=== PATIENT | female | born 1940 | race Caucasian/White ===

== ENCOUNTER → 2017-03-25 | Outpatient (CLI) | payer OTHER | LOC: FIMAGING 13:59 | PROVIDERS: ATTEND Physician Assistant Surgical | DX: Z12.31 Encounter for screening mammogram for malignant neoplasm of breast (principal) | CPT/HCPCS: G0202 ==

== ENCOUNTER → 2018-04-01 | Outpatient (CLI) | payer OTHER | LOC: FIMAGING 13:02 | PROVIDERS: ATTEND Physician Assistant Surgical | DX: Z12.31 Encounter for screening mammogram for malignant neoplasm of breast (principal) ==

== ENCOUNTER 2019-03-28 10:43 | Day surgery (SDC) | payer OTHER ==
[2019-03-28] MEDS ORDERED: ROPIVACAINE HCL 150 MG/30 ML INJ ONE (10:58)
[2019-03-28] MEDS ORDERED: BUPIVACAINE 0.5% 30 ML SDV ONE (10:59)
[2019-03-28] MEDS ORDERED: LIDOCAINE 1% 5 ML SDV ONE ×2 (11:00→13:57)
--- NOTE | 2019-03-28 11:03 | PDANEPAE ---
ANE History of Present Illness R. 2d toe amputation, R 5th toe tendon release and excision of lesion. ANE Past Medical History - Cardiovascular History Hx Hypertension: No Hx Arrhythmias: No Hx Chest Pain: No Hx Coronary Artery / Peripheral Vascular Disease: No Hx CHF / Valvular Disease: No Hx Palpitations: No Cardiovascular History Comment: BP high today, denies HTN. - Pulmonary History Hx COPD: No Hx Asthma/Reactive Airway Disease: No Hx Recent Upper Respiratory Infection: No Hx Oxygen in Use at Home: No Hx Sleep Apnea: No Sleep Apnea Screening Result - Last Documented: Negative - Neurologic History Hx Cerebrovascular Accident: No Hx Seizures: No Hx Dementia: No - Endocrine History Hx Diabetes: Yes Hypothyroid: Yes Hyperthyroid: No Endocrine History Comment: TOTAL THYROIDECTOMY - Renal History Hx Renal Disorders: No Renal History Comment: PREV BLADDER CA - Liver History Hx Hepatic Disorders: No - Neurological & Psychiatric Hx Hx Neurological and Psychiatric Disorders: No - Cancer History Hx Cancer: Yes Cancer History Comment: BLADDER - Congenital Disorder History Hx Congenital Disorders: No - GI History GERD: mild Hx Gastrointestinal Disorders: Yes Gastrointestinal History Comment: PREV GERD WITH RX. OK PAST 2 YEARS - Other Health History Other Health History: BUNION RT FOOT. DIFORMITY RT 2ND TOE. RT 3RD HAMMERTOE - Chronic Pain History Chronic Pain: Yes (RT FOOT) - Surgical History Prior Surgeries: REMVL BLADDER TUMOR 2005. TOTAL THYROIDECTOMY. TONSILLECTOMY ANE Review of Systems Review of Systems: - Exercise capacity METS (RN): 6 METS ANE Patient History - Allergies Allergies/Adverse Reactions: ciprofloxacin [From Cipro] Allergy (Verified 03/22/19 14:05) Rash - Home Medications Home Medications: Synthroid DAILY 03/22/19 [Last Taken 03/28/19] Herbals/Supplements -Info Only 03/28/19 [Last Taken 1 Day Ago ~03/27/19] - Anes Hx Anes Hx: no prior problems - Smoking Hx Smoking Status: Former smoker Marijuana use: Yes - Alcohol Use Alcohol Use: Other (3 drinks/week) - Family Anes Hx Family Anes Hx: none ANE Labs/Vital Signs - Vital Signs Blood Pressure: 177/78 Heart Rate: 68 O2 Sat (%): 98 Height: 162.56 cm Weight: 69.853 kg ANE Physical Exam - Airway Neck exam: decreased ROM Mallampati Score: Class 2 Mouth exam: normal dental/mouth exam - Pulmonary Pulmonary: clear to auscultation - Cardiovascular Cardiovascular: regular rate and rhythym - ASA Status ASA Status: II ANE Anesthesia Plan Anesthesia Plan: GA with mask
[2019-03-28] MEDS ORDERED: LR 1,000 ML IV ONE (11:06)
[2019-03-28] MEDS ORDERED: LIDOCAINE 1% 2 ML INJ ID PRN (11:06)
[2019-03-28] MEDS ORDERED: ceFAZolin 2 GM/DEXTROSE 100 ML IV ONE (11:48)
--- NOTE | 2019-03-28 11:51 | PDHPUP ---
History & Physical Update H&P update statement: This history and physical update is based on an assessment of the patient which was completed after admission or registration (within 24 hours), but prior to the surgery/procedure. no change H&P update: H&P reviewed & patient examined (no change in H&P since preop visit) , no change in patient's condition since H&P completed
[2019-03-28] MEDS ORDERED: fentaNYL 100 MCG/2 ML INJ ONE (12:03)
[2019-03-28] MEDS ORDERED: PROPOFOL 200 MG/20 ML VIAL ONE ×5 (12:03→15:31)
--- NOTE | 2019-03-28 12:58 | PDCONSULT ---
Ribbon Winder Note: Reviewed devaughn with Jeovany in preop. After reviewing Butch condition, I feel resection of portion of 2nd and 3rd metatarsal heads and arthroplasty of th 3rd toe may lead to a better outcome. Pain is sub 2ndmet head and diffuse callus . However, there is indeed a callus sub 3rd met head, mild but preset. Under both met heads there is fat atrophy . To note: 3rd toe is with rigid contracture, not reducible and abutts the hallux which is severly laterally deviated. Concern with just amputating 2nd toe is persistent pain in the forefoot. 3rd toe on xray is also dislocated and so very likely will be prone to getting the weight transfer and so pain can develope there in the near future. Therefore suggesting the proposed procedure for better outcome. Added procedures to the consent form and signed. Patients daughter was present at bedside.
[2019-03-28] MEDS ORDERED: BACITRACIN 50,000 UNITS/10 ML SYR IRR ONE (13:23)
[2019-03-28] MEDS ORDERED: LIDO/EPI 1% **Not for Epidural 20 ML MDV ONE (13:28)
[2019-03-28] MEDS ORDERED: fentaNYL 100 MCG/2 ML INJ IVP PRN (14:38)
[2019-03-28] MEDS ORDERED: NALOXONE HCL 0.4 MG/ML INJ IVP PRN (14:38)
[2019-03-28] MEDS ORDERED: ONDANSETRON 4 MG/2 ML VIAL IVP PRN (14:38)
[2019-03-28] MEDS ORDERED: oxyCODONE IR 5 MG TAB PO PRN (14:38)
[2019-03-28] MEDS ORDERED: HYDROCODONE/APAP 5/325 TAB PO PRN (14:38)
--- NOTE | 2019-03-28 16:04 | POSTANESTH ---
Post Anesthetic Evaluation Cardiovascular Status: Similar to Pre-Op Cond Respiratory Status: Normal, Stable Level of Consciousness/Mental Status: Can Participate in Eval Pain Control: Adequate, Prn Tx Ordered Nausea/Vomiting Control: Adequate, Prn Tx Ordered Complications Possibly Related to Anesthesia: None Noted
--- NOTE | 2019-03-28 16:10 | POSTOPPROG ---
Post Op Note Date of Operation: 03/28/19 Surgeon: Ruby Alatorre Horticultural Specialty Grower: NONE Anesthesiologist: DR. WES DENNIS Anesthesia: LMA Pre-op Diagnosis: DISLOCATED 2ND TOE, HAMMERTOE 3RD, CONRACTURE 5TH, MET DEFRSKINLESIN RIGHT Post-op Diagnosis: SAME Indication: PAIN ,ADVANCED DEFORMITY RIGHT FOOT. Procedure: AMPUTATION 2ND TOE, ARTHROPLASTY 3RD,RESECT MTH 2,3, FDL TENOTN5, RIGHT Inf/Abcess present in the surg proc area at time of surgery?: No Depth: Deep Incisional (Fascial) EBL: Minimal Complications: NONE Specimen(s): NONE
[2019-03-28 17:34] VITALS: BP 160/83
--- NOTE | 2019-03-29 13:55 | GOP ---
[f rep st] OPERATIVE REPORT DATE OF OPERATION: 03/28/2019 SURGEON: Ruby Alatorre DPM ANESTHESIA: Light general/MAC. ANESTHESIOLOGIST: Ramy Graham MD PREOPERATIVE DIAGNOSIS: 1. Dislocated 2nd digit right foot. 2. Hammertoe deformity, 3rd digit, right foot. 3. Second metatarsal deformity, metatarsophalangeal joint contracture, right foot. 4. Third metatarsal deformity, contracture at the metatarsophalangeal joint, right foot. 5. Contracture, 5th digit, right foot. 6. Deep skin lesion, 5th digit, right foot. 7. Exostosis, 5th digit, right foot. POSTOPERATIVE DIAGNOSIS: PROCEDURE PERFORMED: 1. Amputation, 2nd digit, right foot. 2. Resection of the 2nd metatarsal head, right foot. 3. Hammertoe repair involving arthroplasty, 3rd digit, right foot. 4. Resection 3rd metatarsal head, right foot. 5. Flexor digitorum longus tendon release, 5th digit, right foot. 6. Excision of painful skin lesion, 5th digit, right foot, with a converging semi-elliptical type of incision. 7. Exostectomy, 5th digit. FINDINGS: INDICATIONS: Significant pain in the right foot. She had reported aching, throbbing, and getting wo rse, pointing towards the plantar aspect of the 2nd metatarsal head. Pain at times 8/10. 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 Conservatively, she has related trying various types of shoes, tried every pad available, and condition has persisted. At this time, she elects to proceed with surgery on the right foot. Prior to surgery, digital x-rays were reviewed. Upon review, I decided to add additional procedures for a better outcome. In addition to the amputation of the 2nd digit, I felt that partial resection of the 2nd metatarsal head was warranted and significant plantar fat pad atrophy is noted, and I do n ot believe significant relief can be obtained with just the 2nd amputation after reflecting at the x- rays again, 2nd metatarsal also being longer than the 1st. Then in addition, 3rd digit was noted to be dorsally dislocated as well on that digital AP and oblique view. As well, fat pad atrophy, planta r 3rd metatarsal head with a diffuse callus, almost as significant as this plantar 2nd metatarsal hea d. With resection of the metatarsal head on the 2nd and seeing the dislocated 3rd digit, I felt that removal of the portion of the 3rd metatarsal head was also warranted to improve the alignment of the 3rd digit which was rigid and nonreducible, and by just addressing the 2nd digit and 2nd metatarsal alone, ultimately she would result in having transfer weight and problems. The details of this were discussed with her preoperatively, reviewing diagrams and having a discussion. The patient reported she would like to proceed with what needs to be done. Goals is to have pain relief and, if it can al l be done at once, she prefers to do so. Therefore, procedures were added to the consent form as nayan neves as a diagram with her initials. DESCRIPTION OF PROCEDURE: Patient was brought into the operating room, placed on the operating table in a supine position. Intravenous sedation administered by the anesthesiologist, essentially light general. A posterior tibial and peripheral nerve block was obtained utilizing a total of 15 cc of 1% lidocaine plain, in addition 10 cc of 0.5% Marcaine plain. With the posterior tibial and ankle bloc k, the lower extremity was prepped and draped in the usual sterile manner. After the limb had been e levated, it was exsanguinated with an Esmarch bandage and the procedure was begun. Stockinette was u tilized under the ankle cuff. Procedure #1: Amputation, 2nd digit. Attention was directed towards the dorsal aspect of the 2nd di git where a racquet-type incision was created. Incision was carefully deepened with care of neurovas cular structures and to clamp and cauterize bleeders. Second digit was disarticulated and then remov ed from the wound in toto. Procedure #2: Upon reflection of the 2nd metatarsal head, hypertrophied bone was noted along the peg ginger medial aspect where the digit was sitting, and this bony prominence was resected. 50% of the car tilage on the metatarsal head was absent. Utilizing the sagittal saw, partial resection of the metat arsal head was performed at an angle (dorsal/distal to plantar/proximal), resecting the prominent sheila ntar condyle. Procedure #3: Attention was now directed towards the dorsal aspect of the 3rd digit where an incisio n was created from the proximal interphalangeal joint proximally to the metatarsophalangeal joint. I ncision was deepened at the proximal interphalangeal joint with tenotomy. Capsulotomy was performed exposing the rigid contracture. After the capsule was reflected utilizing a sagittal saw, the head o f the proximal phalanx was resected, allowing the digit to be more relaxed. However, it was still si gnificantly contracted as it was noted to be dislocated dorsal medially as well. Procedure #4: Upon reduction of the digit, also 60% of the cartilage was absent on the 3rd metatarsa l head with erosions and with dorsal spurring. Dorsal spurring was resected. Partial head resection of the 3rd metatarsal head was performed. Care was taken to maintain length just slightly shorter t hendrix the 2nd metatarsal, but not excessively short. With loading of the forefoot, 3rd digit set now i n a more relaxed position. Wound was copiously irrigated with bacitracin irrigation solution. Procedure #5: Attention was directed to the plantar aspect of the 5th digit where a linear incision was created and carefully deepened. The flexor digitorum longus was identified and transected allowi ng the digit to sit in a more relaxed position. It was significantly adductor varus. Procedure #6: Attention directed toward the lateral aspect of the 5th digit where the deep hyperkerat otic skin lesion was noted just adjacent to the nailbed. Utilizing converging semi-elliptical incisi on, the hyperkeratotic skin lesion was resected from the wound and sent to Pathology for gross and mi croscopic examination. The underlying bone was prominent, and this was resected with a saw. Then si betty were smoothed with a powered rotating bur. The wound was copiously irrigated with bacitracin irr igation solution. All wounds throughout the procedure were copiously irrigated with bacitracin irrig ation solution. With closure at the 2nd metatarsal head, the plantar extensor tendon and plantar plate were sutured w ith Ethibond to dorsal tissue to secure and provide some degree of stability. Deep closure performed with 2-0 and 3-0 Vicryl. Third digit closure was performed reapproximating the extensor tendon and capsule with 2-0 and 3-0 Vicryl. The tourniquet had been released prior to full closure, and a eugenia l hyperemic response was noted to all digits. Subcutaneous closure achieved with 4-0 Monocryl. Skin was closed with 4-0 Prolene in a horizontal ma ttress and simple interrupted suture manner. Dressings included Xeroform, Betadine-soaked 4 x 4's, a dditional 4 x 4 conform Florencia reinforced with tape and an Rubens bandage. The patient tolerated the pro cedure and anesthesia well and left the operating room with vital signs stable and vascular status in tact to all digits. There were no intraoperative complications. Additional injectables included 10 cc of 0.5% ropivacaine. Skin specimen sent to Pathology for gross and microscopic examination. In postoperative recovery, the patient was doing very well. Her daughter was with her and will be pr oviding her transportation home. She was fitted with a cryo cuff. She was resistant to pain medicat ion; however, insisted on 1 OxyContin, and a prescription was written to take after dinner tonight. After that, she can take pain medications on a p.r.n. basis. Prognosis is good. /[id number]/MODL
== END 2019-03-28 17:25 | disposition home or self-care (01) ==
LOC: FSGY 10:43
PROVIDERS: ATTEND Podiatrist
PROC: 0JBQ0ZX Excision of Right Foot Subcutaneous Tissue and Fascia, Open Approach, Diagnostic (ICD-10-PCS; principal; 2019-03-28 12:15)
PROC: 0QBN0ZZ Excision of Right Metatarsal, Open Approach (ICD-10-PCS; principal; 2019-03-28 12:15)
PROC: 0QTQ0ZZ Resection of Right Toe Phalanx, Open Approach (ICD-10-PCS; principal; 2019-03-28 12:15)
PROC: 0Y6R0Z3 Detachment at Right 2nd Toe, Low, Open Approach (ICD-10-PCS; principal; 2019-03-28 12:15)
PROC: 0LNV0ZZ Release Right Foot Tendon, Open Approach (ICD-10-PCS; principal; 2019-03-28 12:15)
DX: M20.5X1 Other deformities of toe(s) (acquired), right foot (principal); M20.41 Other hammer toe(s) (acquired), right foot; M24.574 Contracture, right foot; M89.9 Disorder of bone, unspecified; L98.9 Disorder of the skin and subcutaneous tissue, unspecified
CPT/HCPCS: J0690; J2704; J2795; J3010